=== PATIENT | male | born 2000 | race African-American/Black ===

== ENCOUNTER 2024-06-19 11:41 | Emergency (ER) | payer SELFPAY ==
[2024-06-19] MEDS ORDERED: Ibuprofen 800 MG TAB ONE (12:11)
== END 2024-06-19 12:39 ==
LOC: NAV ERS 11:41
DX: S20.219A Contusion of unspecified front wall of thorax, initial encounter (principal); V49.50XA Passenger injured in collision with unspecified motor vehicles in traffic accident, initial encounter
CPT/HCPCS: 99283